=== PATIENT | female | born 1960 | race African-American/Black ===

== ENCOUNTER 2019-03-10 11:06 | Inpatient (IN) | payer OTHER, BC ==
[2019-03-10 11:23] VITALS: BMI 39.9
[2019-03-10 14:31] LABS: BASO % 0.9 % (0-2.0); EOS % 3.8 % (0-4.5); HEMATOCRIT 38.5 % (32.4-45.2); HEMOGLOBIN 12.3 GM/dL (10.7-15.3); LYMPH % 37.2 % (8-40); MCH 23.4 pg (25.7-33.7); MCHC 32.1 g/dl (32.0-36.0); MEAN CELL VOLUME 72.9 fl (80-96); MEAN PLT VOLUME 8.8 fl (7.5-11.1); MONO % 9.1 % (3.8-10.2); PLATELET COUNT 218 K/MM3 (134-434); RBC 5.28 M/mm3 (3.60-5.2); RDW 22.1 % (11.6-15.6); WHITE BLOOD COUNT 6.5 K/mm3 (4.0-10.0)
[2019-03-10 14:33] LABS: EPI CELLS 1.9 /HPF (0-5/HPF); HYALINE CASTS 38 /lpf (0-8); PH,URINE 5.5 (5.0-8.0); URINE APPEARANCE TURBID; URINE BACTERIA 4946.4 /hpf (NEGATIVE); URINE BILIRUBIN NEGATIVE (NEGATIVE); URINE COLOR YELLOW; URINE GLUCOSE (UA) NEGATIVE (NEGATIVE); URINE KETONE NEGATIVE (NEGATIVE); URINE LEUK ESTERASE 3+ (NEGATIVE); URINE NITRITE POSITIVE (NEGATIVE); URINE PROTEIN 2+ (NEGATIVE); URINE UROBILINOGEN 0.2 mg/dL (0.2-1.0); URINE WBC 3237 /hpf (0-5)
[2019-03-10 14:51] LABS: URINE RBC 28.6 /hpf (0-4)
[2019-03-10 14:58] LABS: BILIRUBIN,TOTAL 0.3 mg/dL (0.2-1); CALCIUM 8.8 mg/dL (8.5-10.1); CREATININE 0.6 mg/dL (0.55-1.3); POTASSIUM 3.7 mmol/L (3.5-5.1); TOT PROT 7.4 g/dl (6.4-8.2)
[2019-03-10] MEDS ORDERED: CEFTRIAXONE 1,000 MG in DEXTROSE 5%-WATER - 50 ML IVPB ONE (15:02)
[2019-03-10] MEDS ORDERED: CEFTRIAXONE 1 GM/50 ML BAG ONE (15:15)
[2019-03-10 15:21] LABS: ANISOCYTOSIS 2+; MACROCYTOSIS 0; PLATELET ESTIMATE NORMAL
--- NOTE | 2019-03-10 16:08 | PDOC ---
Documentation entered by Tanisha Newton SCRIBE, acting as scribe for Alex Ray MD. Aelx Ray MD: This documentation has been prepared by the Lamar grimes Sammi, SCRIBE, under my direction and personally reviewed by me in its entirety. I confirm that the documentation accurately reflects all work, treatment, procedures, and medical decision making performed by me. History of Present Illness - General Chief Complaint: Pain Stated Complaint: SOB Time Seen by Provider: 03/10/19 11:52 - History of Present Illness Initial Comments: 03/10/19 12:12 The patient is a 58 year old female, with PMH of rheumatoid arthritis, who presents for evaluation of diffuse body pain, specifically in the knees and elbows, due to her rheumatoid arthritis. The patient was discharged from [facility] on 02/19/19, with no follow up and has ran out of her chronic medications. She also reports 4 weeks of dysuria. Past History - Past Medical History Allergies/Adverse Reactions: Allergies Allergy/AdvReac Type Severity Reaction Status Date / Time sulfadiazine Allergy Verified 03/10/19 11:23 Home Medications: Ambulatory Orders Acetaminophen [Tylenol] 325 mg PO PRN 03/10/19 Amlodipine Besylate 5 mg PO DAILY 03/10/19 Apixaban [Eliquis] 5 mg PO BID 03/10/19 Baclofen 10 mg PO TID 03/10/19 Budesonide/Formeterol Fumarate [SYMBICORT 160/4.5mcg -] 1 inh PO BID 03/10/19 Cholecalciferol (Vitamin D3) [Vitamin D3 -] 400 unit PO DAILY 03/10/19 Folic Acid 1 mg PO DAILY 03/10/19 Hydroxychloroquine Sulfate [Plaquenil] 200 mg PO DAILY 03/10/19 Latanoprost 0.005% Eye Drops [Xalatan 0.005% Eye Drops -] 1 drop HS 03/10/19 Methotrexate Sodium [Methotrexate] 2.5 mg PO ASDIR 03/10/19 Metoprolol Tartrate 25 mg PO BID 03/10/19 Montelukast Na [Singulair -] 10 mg PO HS 03/10/19 Omeprazole 20 mg PO DAILY 03/10/19 Prednisone 5 mg PO AM 03/10/19 Pregabalin [Lyrica -] 150 mg PO BID 03/10/19 Sennosides/Docusate Sodium [Senna Plus 8.6-50 mg Tablet] 1 each PO HS 03/10/19 Thiamine HCl [B-1] 100 mg PO DAILY 03/10/19 predniSONE [Deltasone -] 2.5 mg PO DAILY 03/10/19 Anemia: Yes Asthma: Yes COPD: No DVT: Yes (PE) GI Disorders: Yes (GERD,CONSTIPATION) HTN: Yes Other medical history: RHEUMATOID ARTHRITIS - Immunization History Immunization Up to Date: Yes - Psycho Social/Smoking Cessation Hx Smoking History: Never smoked Information on smoking cessation initiated: No Hx Alcohol Use: No Drug/Substance Use Hx: No Review of Systems - Review of Systems Comments:: 03/10/19 12:12 CONSTITUTIONAL: No fever, no chills, no fatigue EYES: No visual changes ENT: No ear pain, no sore throat CARDIOVASCULAR: No chest pain, no palpitations RESPIRATORY: No cough, no SOB GI: No abdominal pain, no nausea, no vomiting, no constipation, no diarrhea GENITOURINARY: No dysuria, no frequency, no hematuria MUSKULOSKELETAL: +diffuse joint pain, centered to knees and elbows. SKIN: No rash NEURO: No headache *Physical Exam - Vital Signs Last Vital Signs Temp Pulse Resp BP Pulse Ox 98.3 F 84 18 122/90 98 03/10/19 11:10 03/10/19 11:10 03/10/19 11:10 03/10/19 11:10 03/10/19 11:10 - Physical Exam 03/10/19 16:16 EXAMINATION CONSTITUTIONAL: awake, alert, obese, in moderate distress HEAD: Normocephalic; atraumatic EYES: PERRL; EOM intact ENMT: External appears normal; mm-dry NECK: Supple; non-tender; no cervical lymphadenopathy CARD: Normal S1, S2; no murmurs, rubs, or gallops RESP: distal bs b/l; Normal chest excursion with respiration; breath sounds clear and equal bilaterally; no wheezes, rhonchi, or rales ABD: Soft, non-distended; non-tender; no palpable organomegaly, no palpable hernias EXT: b/l UEs deform with digital flexion and ulnar deviation c/w long standing RA. b/l LEs arthlalgia to knee and ankle joints b/l; b/l oncomycosis; distal pulses intact SKIN: Warm, dry, b/l LEs hyperpigmintations c/w venous stasis NEURO: No focal neurological deficiencies. ED Treatment Course - LABORATORY CBC & Chemistry Diagram: 03/10/19 13:47 03/10/19 13:47 - ADDITIONAL ORDERS Additional order review: Laboratory Results 03/10/19 03/10/19 13:47 13:41 Sodium 142 Potassium 3.7 Chloride 111 H Carbon Dioxide 24 Anion Gap 8 BUN 11.0 Creatinine 0.6 Est GFR (CKD-EPI)AfAm 115.63 Est GFR (CKD-EPI)NonAf 99.77 Random Glucose 96 Calcium 8.8 Total Bilirubin 0.3 AST 21 ALT 17 Alkaline Phosphatase 124 H Total Protein 7.4 Albumin 3.0 L Urine Color Yellow Urine Appearance Turbid Urine pH 5.5 Ur Specific [place] 1.018 Urine Protein 2+ H Urine Glucose (UA) Negative Urine Ketones Negative Urine Blood 2+ H Urine Nitrite Positive H Urine Bilirubin Negative Urine Urobilinogen 0.2 Ur Leukocyte Esterase 3+ H Urine WBC (Auto) 3237 Urine RBC (Auto) 28.6 Urine Casts (Auto) 38 U Pathogenic Cast Auto None seen U Epithel Cells (Auto) 1.9 Urine Bacteria (Auto) 4946.4 03/10/19 13:47 RBC 5.28 H MCV 72.9 L MCHC 32.1 RDW 22.1 H MPV 8.8 Neutrophils % 49.0 Lymphocytes % 37.2 Monocytes % 9.1 Eosinophils % 3.8 Basophils % 0.9 - RADIOLOGY Radiology Studies Ordered: Category Date Time Status CHEST - PA [RAD] Stat Radiology 03/10/19 15:03 Completed - Medications Given in the ED: ED Medications Discontinued Medications Generic Name Dose Route Start Last Admin Trade Name Freq PRN Reason Stop Dose Admin Ceftriaxone Sodium 1,000 mg/ 50 mls @ 100 mls/hr 03/10/19 15:02 03/10/19 15: 20 Dextrose IVPB 03/10/19 15:31 100 mls/hr ONCE ONE Administration Oxycodone/Acetaminophen 1 combo 03/10/19 12:11 03/10/19 12:16 Percocet 5/325 - PO 03/10/19 12:12 1 combo ONCE ONE Administration Medical Decision Making - Medical Decision Making 03/10/19 16:20 Patient is a 58-year-old female with multiple comorbidities, history of advanced rheumatoid arthritis, who has not taken her medication for over a week presents with generalized weakness, worsening extremity and joint pain as well as persistent dysuria. Patient is afebrile, nontoxic-appearing in the ED. Will administer oxycodone and APAP for pain control. Urinalysis consistent with nitrite positive pyuria. Urine culture and sensitivities pending. Will administer IV ceftriaxone. Will admit. Will consult social work. Discharge - Discharge Information Problems reviewed: Yes Clinical Impression/Diagnosis: Weakness Urinary tract infection Qualifiers: Urinary tract infection type: site unspecified Hematuria presence: with hematuria Qualified Code(s): N39.0 - Urinary tract infection, site not specified Rheumatoid arthritis Qualifiers: Rheumatoid arthritis location: unspecified site Rheumatoid factor presence: unspecified presence Qualified Code(s): M06.9 - Rheumatoid arthritis, unspecified Condition: Fair - Admission Yes - Follow up/Referral - Patient Discharge Instructions - Post Discharge Activity
[2019-03-10] MEDS ORDERED: METHOTREXATE 2.5 MG TABLET PO SCH (17:45)
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
--- NOTE | 2019-03-10 18:10 | PN ---
Teaching Attending Note Name of Resident: Jennie Cuellar ATTENDING PHYSICIAN STATEMENT I saw and evaluated the patient. I reviewed the resident's note and discussed the case with the resident. I agree with the resident's findings and plan as documented. SUBJECTIVE: Patient is a 58 yo obese F with a PMhx of DVT x 2 (on eliquis), HTN, severe RA, presenting to the ER because of diffuse body pain that has been going on for the past few months since being discharged from [facility] on (resident for 1 year). She said she is running out of her medications since [facility] and has not followed up with a PCP. That is another reason why she presented to the ED. She has not had a pcp in many years. She said she usually gets her medications filled from the nursing homes. She also mentions self medicating herself with 40mg of prednisone for a long time but recently has been on 7.5mg. She said she was following Dr. Persaud (Rheumatology) from [facility] for many years, but he apparently retired. Then she was seeing her prison pool table mechanic until she was discharged. Patient is a poor historian and not reliable. She said she has been living with her sister since leaving the prison. She is mostly bed bound and does not ambulate. and sister helps with her, She denies sob, nausea, vomiting, fevers, chills, chest pain, dizziness, cough, bloody urine, rectal bleeding. She does report having a pulling sensation and discomfort in her lower abdomen when she urinates for 4 weeks. pt non compliant with the followup, was supposssed to see the rheumatology today, but unable to get the transportation, OBJECTIVE: O/e, a middle aged female, is comfortable , nad, is aao into time place and person, vss neck supple , no jvd cvs s1/s2/0 chest ctab abd benign ext no c/c/e, hands cesar deformities, ulnar deviation, and swarm deformities, neuro non focal swollen R knee, painful rom, ms 5/5 ASSESSMENT AND PLAN: 1) UTI U/A positive -IV abx with Ceftriaxone. -follow up blood cultures 2)Rhematoid arthritis -has not followed up with a pool table mechanic. non-compliant. diffuse pain, -resume prednisone 7.5 daily, methrotrexate, hold plaquenil for now (unsure when she last saw opthamologist). restart baclofen if needed. -Rheumatology consult. Patient on many medications, self medicating, and has not followed up since being [facility] from [facility]. -cont lyrica for pain 3)hx of DVT -continue eliquis 5mg BID 4)HTN -cont norvasc, metoprolol dispo: cont current management. patient unsafe for discharge at this time. will talk to social science research assistant in AM regarding placement for discharge.
[2019-03-10] MEDS ORDERED: PATIENT'S OWN MEDICATION (NON-FORMULARY) (Pregabalin [Lyrica -] 150 MG) PO SCH (22:00)
[2019-03-10] MEDS ORDERED: ACETAMINOPHEN 325 MG TABLET (FP) ONE (22:01)
[2019-03-10] MEDS ORDERED: KETOROLAC TROMETHAMINE 15 MG/ML VIAL ONE (22:02)
[2019-03-10] MEDS ORDERED: PREGABALIN 50 MG CAPSULE ONE (22:02)
[2019-03-10] MEDS: KETOROLAC TROMETHAMINE 15 MG/ML VIAL IVPUSH PRN (22:15)
[2019-03-10] MEDS: APIXABAN 5 MG TABLET PO SCH (22:30)
[2019-03-10] MEDS: METOPROLOL TARTRATE 25 MG TABLET (FP) PO SCH (22:30)
[2019-03-10] MEDS: MONTELUKAST NA 10 MG TABLET PO SCH (22:30)
[2019-03-10] MEDS: SENNOSIDES/DOCUSATE COMBO (SENNA PLUS) TABLET (UD) PO SCH (22:30)
[2019-03-10] MEDS: PREGABALIN 75 MG CAPSULE PO SCH (22:30)
[2019-03-10] MEDS: BUDESONIDE/FORMETEROL FUMARATE 160/4.5 mcg INHALER IH SCH (22:31)
[2019-03-11] MEDS: predniSONE 5 MG/5 ML ORAL SOLN- UNIT-DOSE CUP PO SCH (06:28)
[2019-03-11 06:57] LABS: HEMATOCRIT 38.6 % (32.4-45.2); HEMOGLOBIN 12.4 GM/dL (10.7-15.3); MCH 23.7 pg (25.7-33.7); MCHC 32.1 g/dl (32.0-36.0); MEAN PLT VOLUME 8.6 fl (7.5-11.1); PLATELET COUNT 190 K/MM3 (134-434); RBC 5.22 M/mm3 (3.60-5.2); RDW 21.6 % (11.6-15.6); WHITE BLOOD COUNT 6.9 K/mm3 (4.0-10.0)
[2019-03-11] MEDS ORDERED: predniSONE 5 MG TABLET (UD) PO SCH (07:00)
[2019-03-11 07:43] LABS: ALBUMIN 2.9 g/dl (3.4-5.0); BILIRUBIN,TOTAL 0.3 mg/dL (0.2-1); BLOOD UREA NITROGEN 13.3 mg/dL (7-18); CALCIUM 8.7 mg/dL (8.5-10.1); CREATININE 0.8 mg/dL (0.55-1.3); POTASSIUM 3.6 mmol/L (3.5-5.1); TOT PROT 7.1 g/dl (6.4-8.2)
[2019-03-11] MEDS ORDERED: predniSONE 2.5 MG TABLET PO SCH (10:00)
[2019-03-11] MEDS: APIXABAN 5 MG TABLET PO SCH ×2 (10:14→22:25)
[2019-03-11] MEDS: FOLIC ACID 1 MG TABLET (FP) PO SCH (10:14)
[2019-03-11] MEDS: METOPROLOL TARTRATE 25 MG TABLET (FP) PO SCH ×2 (10:17→22:25)
[2019-03-11] MEDS: CHOLECALCIFEROL (VIT D3) 400 UNIT (10 MCG) TABLET PO SCH (10:18)
[2019-03-11] MEDS: BUDESONIDE/FORMETEROL FUMARATE 160/4.5 mcg INHALER IH SCH ×2 (10:18→22:26)
[2019-03-11] MEDS: KETOROLAC TROMETHAMINE 15 MG/ML VIAL IVPUSH PRN ×2 (10:19→17:14)
[2019-03-11] MEDS: THIAMINE HCL 100 MG TABLET (FP) PO SCH (10:22)
[2019-03-11] MEDS: amLODIPine BESYLATE 5 MG TABLET (FP) PO SCH (10:23)
[2019-03-11] MEDS ORDERED: PREGABALIN 50 MG CAPSULE ONE (11:32)
[2019-03-11] MEDS ORDERED: PREGABALIN 100 MG CAPSULE ONE (11:33)
[2019-03-11] MEDS: PREGABALIN 75 MG CAPSULE PO SCH ×2 (11:37→22:25)
--- NOTE | 2019-03-11 11:55 | EKG ---
Test Reason : Blood Pressure : / mmHG Vent. Rate : 084 BPM Atrial Rate : 084 BPM P-R Int : 170 ms QRS Dur : 082 ms QT Int : 370 ms P-R-T Axes : 020 -30 017 degrees QTc Int : 437 ms POOR DATA QUALITY, INTERPRETATION MAY BE ADVERSELY AFFECTED NORMAL SINUS RHYTHM LEFT AXIS DEVIATION VOLTAGE CRITERIA FOR LEFT VENTRICULAR HYPERTROPHY NONSPECIFIC T WAVE ABNORMALITY ABNORMAL ECG NO PREVIOUS ECGS AVAILABLE Confirmed by JESSIE GUPTA, SINA ([id number]) on 03/11/2019 11:55:17 AM Referred By: Confirmed By:SINA ROMAN MD
[2019-03-11] MEDS: CEFTRIAXONE 2 GM in DEXTROSE 5%-WATER 100 ML IVPB SCH (11:58)
--- NOTE | 2019-03-11 13:57 | PN ---
Teaching Attending Note Name of Resident: Christina Perea ATTENDING PHYSICIAN STATEMENT I saw and evaluated the patient. I reviewed the resident's note and discussed the case with the resident. I agree with the resident's findings and plan as documented. SUBJECTIVE: Seen and examined at bedside. No acute events overnight. Feeling better OBJECTIVE: Vital Signs - 24 hr 03/10/19 03/10/19 03/10/19 16:48 19:30 23:00 Temperature 98.4 F 98.1 F 97.1 F L Pulse Rate 82 81 Pulse Rate [ 96 H Left Radial] Respiratory 15 18 18 Rate Blood Pressure 114/81 128/84 Blood Pressure 114/73 [Left Arm] O2 Sat by Pulse 97 98 Oximetry (%) 03/11/19 03/11/19 03/11/19 06:26 09:00 09:37 Temperature 98.4 F 99.1 F Pulse Rate 87 58 L Pulse Rate [ Left Radial] Respiratory 18 20 20 Rate Blood Pressure 120/85 123/58 L Blood Pressure [Left Arm] O2 Sat by Pulse 97 Oximetry (%) PE: Gen: NAD CVS: s1s2, rrr Lungs: CTA bl no wrr Abd: soft, nt,nd, nabs Ext: RA deformities, bl lower ext chronic venous stasis changes Current Medications Generic Name Dose Route Start Last Admin Trade Name Freq PRN Reason Stop Dose Admin Acetaminophen 1,000 mg 03/10/19 21:13 Tylenol - PO Q6H PRN PAIN LEVEL 6-10 Amlodipine Besylate 5 mg 03/11/19 10:00 03/11/19 10:23 Norvasc - PO 5 mg DAILY NUNU Administration Apixaban 5 mg 03/10/19 22:00 03/11/19 10:14 Eliquis - PO 5 mg BID NUNU Administration Budesonide/Formoterol Fumarate 1 puff 03/10/19 22:00 03/11/19 10:18 Symbicort 160/4.5mcg - IH 1 inh BID NUNU Administration Cholecalciferol 400 unit 03/11/19 10:00 03/11/19 10:18 Vitamin D3 - PO 400 unit DAILY NUNU Administration Folic Acid 1 mg 03/11/19 10:00 03/11/19 10:14 Folic Acid - PO 1 mg DAILY NUNU Administration Ceftriaxone Sodium 2 gm/ 100 mls @ 200 mls/hr 03/11/19 10:00 03/11/19 11:58 Dextrose IVPB 200 mls/hr DAILY NUNU Administration Protocol Ketorolac Tromethamine 15 mg 03/10/19 21:14 03/11/19 10:19 Toradol Injection - IVPUSH 03/15/19 21:13 15 mg Q6H PRN Administration PAIN LEVEL 6-10 Methotrexate 2.5 mg 03/10/19 17:45 Mexate - PO ASDIR NUNU Metoprolol Tartrate 25 mg 03/10/19 22:00 03/11/19 10:17 Lopressor - PO 25 mg BID NUNU Administration Montelukast Sodium 10 mg 03/10/19 22:00 03/10/19 22:30 Singulair - PO 10 mg HS NUNU Administration Prednisone 7.5 mg 03/11/19 07:00 03/11/19 06:28 Deltasone - PO 7.5 mg AM NUNU Administration Pregabalin 150 mg 03/10/19 22:00 03/11/19 11:37 Lyrica - PO 150 mg BID NUNU Administration Senna/Docusate Sodium 1 tablet 03/10/19 22:00 03/10/19 22:30 Pericolace - PO 1 tablet HS NUNU Administration Thiamine HCl 100 mg 03/11/19 10:00 03/11/19 10:22 Vitamin B1 - PO 100 mg DAILY NUNU Administration Laboratory Results - last 24 hr 03/10/19 03/10/19 03/10/19 13:41 13:47 13:47 WBC 6.5 RBC 5.28 H Hgb 12.3 Hct 38.5 MCV 72.9 L MCH 23.4 L MCHC 32.1 RDW 22.1 H Plt Count 218 MPV 8.8 Absolute Neuts (auto) 3.2 Neutrophils % 49.0 Lymphocytes % 37.2 Monocytes % 9.1 Eosinophils % 3.8 Basophils % 0.9 Nucleated RBC % 0 Hypochromia 0 Platelet Estimate Normal Polychromasia 0 Poikilocytosis 0 Anisocytosis 2+ Microcytosis 2+ Macrocytosis 0 Sodium 142 Potassium 3.7 Chloride 111 H Carbon Dioxide 24 Anion Gap 8 BUN 11.0 Creatinine 0.6 Est GFR (CKD-EPI)AfAm 115.63 Est GFR (CKD-EPI)NonAf 99.77 Random Glucose 96 Hemoglobin A1c % Calcium 8.8 Total Bilirubin 0.3 AST 21 ALT 17 Alkaline Phosphatase 124 H Total Protein 7.4 Albumin 3.0 L TSH Urine Color Yellow Urine Appearance Turbid Urine pH 5.5 Ur Specific [place] 1.018 Urine Protein 2+ H Urine Glucose (UA) Negative Urine Ketones Negative Urine Blood 2+ H Urine Nitrite Positive H Urine Bilirubin Negative Urine Urobilinogen 0.2 Ur Leukocyte Esterase 3+ H Urine WBC (Auto) 3237 Urine RBC (Auto) 28.6 Urine Casts (Auto) 38 U Pathogenic Cast Auto None seen U Epithel Cells (Auto) 1.9 Urine Bacteria (Auto) 4946.4 03/11/19 03/11/19 03/11/19 06:00 06:00 06:00 WBC 6.9 RBC 5.22 H Hgb 12.4 Hct 38.6 MCV 74.0 L MCH 23.7 L MCHC 32.1 RDW 21.6 H Plt Count 190 MPV 8.6 Absolute Neuts (auto) Neutrophils % Lymphocytes % Monocytes % Eosinophils % Basophils % Nucleated RBC % Hypochromia Platelet Estimate Polychromasia Poikilocytosis Anisocytosis Microcytosis Macrocytosis Sodium 143 Potassium 3.6 Chloride 110 H Carbon Dioxide 25 Anion Gap 7 L BUN 13.3 Creatinine 0.8 Est GFR (CKD-EPI)AfAm 93.53 Est GFR (CKD-EPI)NonAf 80.70 Random Glucose 79 Hemoglobin A1c % 5.8 Calcium 8.7 Total Bilirubin 0.3 AST 21 ALT 15 Alkaline Phosphatase 117 Total Protein 7.1 Albumin 2.9 L TSH 3.60 Urine Color Urine Appearance Urine pH Ur Specific [place] Urine Protein Urine Glucose (UA) Urine Ketones Urine Blood Urine Nitrite Urine Bilirubin Urine Urobilinogen Ur Leukocyte Esterase Urine WBC (Auto) Urine RBC (Auto) Urine Casts (Auto) U Pathogenic Cast Auto U Epithel Cells (Auto) Urine Bacteria (Auto) Microbiology 03/10/19 13:41 Urine Culture - Preliminary Urine - Urine - Catheterized Lactose Fermenting Neg Bacilli ASSESSMENT AND PLAN: 58 year old female presents with diffuse joint pain 1) UTI -IV abx pending sens -fu blood cx 2) RA -cw home meds -needs better o/p fu -PT eval 3) DVT Hx -cw eliquis 4) HTN -cw current meds SW involved for dispo planning
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
--- NOTE | 2019-03-11 17:46 | CONSULT ---
Consult Consult Specialty:: Rheumatology - History of Present Illness History of Present Illness: 58 year old obese female with a PMhx of DVT x 2 (on Eliquis), HTN, and rheumatoid arthritis, admitted with diffuse pain. HPI. The patient was diagnosed with rheumatoid arthritis in 2005. Since then she has been treated with Methotrexate (5266-0000 and restarted on 09/2018- present), Humira (6042-0912) and Orencia IV (09/2018- present). She is been followed by a lumber bearer at [facility], where she also gets the Orencia infusions. She reports that she missed her last infusion. She has been a prison resident and was discharged on 02/19/19 apparently with poor planning for continuation of care and prescription of medications. She had surgery in the left knee on 03/2017 (TKR?) and has chronic pain in shoulders and knees. It is not clear if at the present time she has more pain than in the past. She denies shortness of breath, chest pain, abdominal pain or fever. Since admission she is on Prednisone 7.5 mg/d. CXR reported with no acute disease. - History Source History Provided By: Patient - Past Medical History ...: No - Alcohol/Substance Use Hx Alcohol Use: No - Smoking History Smoking history: Never smoked Have you smoked in the past 12 months: No Home Medications - Allergies Allergies/Adverse Reactions: Allergies Allergy/AdvReac Type Severity Reaction Status Date / Time sulfadiazine Allergy Verified 03/10/19 11:23 - Home Medications Home Medications: Ambulatory Orders Acetaminophen [Tylenol] 325 mg PO PRN 03/10/19 Amlodipine Besylate 5 mg PO DAILY 03/10/19 Apixaban [Eliquis] 5 mg PO BID 03/10/19 Baclofen 10 mg PO TID 03/10/19 Budesonide/Formeterol Fumarate [SYMBICORT 160/4.5mcg -] 1 inh PO BID 03/10/19 Cholecalciferol (Vitamin D3) [Vitamin D3 -] 400 unit PO DAILY 03/10/19 Folic Acid 1 mg PO DAILY 03/10/19 Hydroxychloroquine Sulfate [Plaquenil] 200 mg PO DAILY 03/10/19 Latanoprost 0.005% Eye Drops [Xalatan 0.005% Eye Drops -] 1 drop HS 03/10/19 Methotrexate Sodium [Methotrexate] 2.5 mg PO ASDIR 03/10/19 Metoprolol Tartrate 25 mg PO BID 03/10/19 Montelukast Na [Singulair -] 10 mg PO HS 03/10/19 Omeprazole 20 mg PO DAILY 03/10/19 Percocet 5-325 mg Tablet 1 tab PO Q6H PRN 03/10/19 Prednisone 5 mg PO AM 03/10/19 Pregabalin [Lyrica -] 150 mg PO BID 03/10/19 Sennosides/Docusate Sodium [Senna Plus 8.6-50 mg Tablet] 1 each PO HS 03/10/19 Thiamine HCl [B-1] 100 mg PO DAILY 03/10/19 predniSONE [Deltasone -] 2.5 mg PO DAILY 03/10/19 Review of Systems - Review of Systems Constitutional: reports: Malaise Eyes: reports: No Symptoms HENT: reports: No Symptoms Neck: reports: No Symptoms Cardiovascular: reports: No Symptoms Respiratory: reports: No Symptoms Gastrointestinal: reports: No Symptoms Musculoskeletal: reports: Other (See HPI) Physical Exam Vital Signs: Vital Signs Temperature 98.5 F 03/11/19 14:00 Pulse Rate 96 H 03/11/19 14:00 Respiratory Rate 20 03/11/19 15:01 Blood Pressure 102/66 03/11/19 14:00 O2 Sat by Pulse Oximetry (%) 98 03/11/19 15:01 Constitutional: Yes: Moderate Distress Eyes: Yes: WNL HENT: Yes: WNL Neck: Yes: WNL Cardiovascular: Yes: WNL Respiratory: Yes: WNL Gastrointestinal: Yes: WNL Musculoskeletal: Yes: Other (Severe deformity in wrists and hands, however there was no synovitis. Tenderness in both knees with no effusion.) Labs: CBC, BMP 03/11/19 06:00 03/11/19 06:00 Laboratory Tests 03/10/19 03/11/19 03/11/19 13:41 06:00 06:00 Est GFR (CKD-EPI)AfAm 93.53 Random Glucose 79 Hemoglobin A1c % 5.8 Calcium 8.7 Total Bilirubin 0.3 AST 21 Alkaline Phosphatase 117 Total Protein 7.1 Urine Appearance Turbid Urine pH 5.5 Ur Specific [place] 1.018 Urine Protein 2+ H Urine Glucose (UA) Negative Urine Ketones Negative Urine Blood 2+ H Urine Nitrite Positive H Urine Bilirubin Negative Urine Urobilinogen 0.2 Ur Leukocyte Esterase 3+ H Urine WBC (Auto) 3237 Urine RBC (Auto) 28.6 Problem List - Problems (1) Rheumatoid arthritis Assessment/Plan: Rheumatoid arthritis with severe damage in multiple joints, in particular hands. The disease is not active. Most of her pain is probably related to joint damage, Her main problem is social aspects of discharge. She was given an apartment in an elevator building, however she claims she does not fit in the elevator. Apparently she did not get prescriptions for medications. Plan Continue with Methotrexate 15 mg PO once per week(Friday). Continue with Prednisone 7.5 mg once per day. Avoid narcotics. Social work to evaluate the patient and arrange follow up at [facility] for continuation of treatment (Orencia IV) and follow up with her lumber bearer. Code(s): M06.9 - RHEUMATOID ARTHRITIS, UNSPECIFIED Qualifiers: Rheumatoid arthritis location: unspecified site Rheumatoid factor presence : unspecified presence
[2019-03-11] MEDS ORDERED: PT OWN MED DRAWER 7, Y5N ONE (17:51)
[2019-03-11] MEDS: SENNOSIDES/DOCUSATE COMBO (SENNA PLUS) TABLET (UD) PO SCH (22:26)
[2019-03-11] MEDS: MONTELUKAST NA 10 MG TABLET PO SCH (22:26)
[2019-03-12] MEDS: predniSONE 5 MG/5 ML ORAL SOLN- UNIT-DOSE CUP PO SCH (06:46)
[2019-03-12 09:21] LABS: BASO % 0.7 % (0-2.0); EOS % 7.2 % (0-4.5); HEMATOCRIT 36.9 % (32.4-45.2); HEMOGLOBIN 11.9 GM/dL (10.7-15.3); LYMPH % 40.1 % (8-40); MCH 23.6 pg (25.7-33.7); MCHC 32.3 g/dl (32.0-36.0); MEAN CELL VOLUME 73.1 fl (80-96); MEAN PLT VOLUME 8.8 fl (7.5-11.1); MONO % 8.9 % (3.8-10.2); NEUT % 43.1 % (42.8-82.8); PLATELET COUNT 197 K/MM3 (134-434); RBC 5.04 M/mm3 (3.60-5.2); RDW 21.7 % (11.6-15.6); WHITE BLOOD COUNT 7.3 K/mm3 (4.0-10.0)
[2019-03-12] MEDS ORDERED: DEXTROSE 5%-WATER 100 ML IVPB ONE (09:45)
[2019-03-12] MEDS: KETOROLAC TROMETHAMINE 15 MG/ML VIAL IVPUSH PRN (09:46)
[2019-03-12] MEDS: PREGABALIN 75 MG CAPSULE PO SCH ×2 (09:47→21:19)
[2019-03-12] MEDS: THIAMINE HCL 100 MG TABLET (FP) PO SCH (09:47)
[2019-03-12] MEDS: FOLIC ACID 1 MG TABLET (FP) PO SCH (09:47)
[2019-03-12] MEDS: CHOLECALCIFEROL (VIT D3) 400 UNIT (10 MCG) TABLET PO SCH (09:47)
[2019-03-12] MEDS: CEFTRIAXONE 2 GM in DEXTROSE 5%-WATER 100 ML IVPB SCH (09:47)
[2019-03-12] MEDS: APIXABAN 5 MG TABLET PO SCH ×2 (09:47→21:19)
[2019-03-12] MEDS: METOPROLOL TARTRATE 25 MG TABLET (FP) PO SCH ×2 (09:47→21:19)
[2019-03-12] MEDS: amLODIPine BESYLATE 5 MG TABLET (FP) PO SCH (09:47)
[2019-03-12] MEDS: BUDESONIDE/FORMETEROL FUMARATE 160/4.5 mcg INHALER IH SCH ×2 (09:48→21:19)
[2019-03-12 09:51] LABS: BILIRUBIN,TOTAL 0.4 mg/dL (0.2-1); BLOOD UREA NITROGEN 17.6 mg/dL (7-18); CALCIUM 8.7 mg/dL (8.5-10.1); CREATININE 0.7 mg/dL (0.55-1.3); POTASSIUM 3.5 mmol/L (3.5-5.1); TOT PROT 6.9 g/dl (6.4-8.2)
--- NOTE | 2019-03-12 11:07 | PN ---
Teaching Attending Note Name of Resident: Christina Perea ATTENDING PHYSICIAN STATEMENT I saw and evaluated the patient. I reviewed the resident's note and discussed the case with the resident. I agree with the resident's findings and plan as documented. SUBJECTIVE: In no distress at this time, was evaluated by rheumatology today and no further interventions were indicated at this time OBJECTIVE: Vital Signs - 24 hr 03/11/19 03/11/19 03/11/19 14:00 15:01 18:00 Temperature 98.5 F 98.3 F Pulse Rate 96 H 83 Respiratory 20 20 20 Rate Blood Pressure 102/66 130/74 O2 Sat by Pulse 98 Oximetry (%) 03/12/19 03/12/19 03/12/19 01:00 06:00 10:00 Temperature 98.3 F 98.8 F Pulse Rate 88 112 H Respiratory 20 20 Rate Blood Pressure 107/79 115/69 O2 Sat by Pulse 99 Oximetry (%) in no distress, sleeping in bed with some minimal joint pain CVS:S1S2 CTAB CBCD WBC 7.3 K/mm3 (4.0-10.0) 03/12/19 08:18 RBC 5.04 M/mm3 (3.60-5.2) 03/12/19 08:18 Hgb 11.9 GM/dL (10.7-15.3) 03/12/19 08:18 Hct 36.9 % (32.4-45.2) 03/12/19 08:18 MCV 73.1 fl (80-96) L 03/12/19 08:18 MCHC 32.3 g/dl (32.0-36.0) 03/12/19 08:18 RDW 21.7 % (11.6-15.6) H 03/12/19 08:18 Plt Count 197 K/MM3 (134-434) 03/12/19 08:18 MPV 8.8 fl (7.5-11.1) 03/12/19 08:18 CMP Sodium 141 mmol/L (136-145) 03/12/19 08:18 Potassium 3.5 mmol/L (3.5-5.1) 03/12/19 08:18 Chloride 110 mmol/L (98-107) H 03/12/19 08:18 Carbon Dioxide 26 mmol/L (21-32) 03/12/19 08:18 Anion Gap 5 MMOL/L (8-16) L 03/12/19 08:18 BUN 17.6 mg/dL (7-18) 03/12/19 08:18 Creatinine 0.7 mg/dL (0.55-1.3) 03/12/19 08:18 Calcium 8.7 mg/dL (8.5-10.1) 03/12/19 08:18 Total Bilirubin 0.4 mg/dL (0.2-1) 03/12/19 08:18 AST 19 U/L (15-37) 03/12/19 08:18 ALT 16 U/L (13-61) 03/12/19 08:18 Alkaline Phosphatase 111 U/L (45-117) 03/12/19 08:18 Total Protein 6.9 g/dl (6.4-8.2) 03/12/19 08:18 Albumin 3.0 g/dl (3.4-5.0) L 03/12/19 08:18 Current Medications Generic Name Dose Route Start Last Admin Trade Name Freq PRN Reason Stop Dose Admin Acetaminophen 1,000 mg 03/10/19 21:13 Tylenol - PO Q6H PRN PAIN LEVEL 6-10 Amlodipine Besylate 5 mg 03/11/19 10:00 03/12/19 09:47 Norvasc - PO 5 mg DAILY NUNU Administration Apixaban 5 mg 03/10/19 22:00 03/12/19 09:47 Eliquis - PO 5 mg BID NUNU Administration Budesonide/Formoterol Fumarate 1 puff 03/10/19 22:00 03/12/19 09:48 Symbicort 160/4.5mcg - IH 1 inh BID NUNU Administration Cholecalciferol 400 unit 03/11/19 10:00 03/12/19 09:47 Vitamin D3 - PO 400 unit DAILY NUNU Administration Folic Acid 1 mg 03/11/19 10:00 03/12/19 09:47 Folic Acid - PO 1 mg DAILY NUNU Administration Ceftriaxone Sodium 2 gm/ 100 mls @ 200 mls/hr 03/11/19 10:00 03/12/19 09:47 Dextrose IVPB 200 mls/hr DAILY NUNU Administration Protocol Ketorolac Tromethamine 15 mg 03/10/19 21:14 03/12/19 09:46 Toradol Injection - IVPUSH 03/15/19 21:13 15 mg Q6H PRN Administration PAIN LEVEL 6-10 Methotrexate 15 mg 03/13/19 10:00 Mexate - PO Sa [facility] Metoprolol Tartrate 25 mg 03/10/19 22:00 03/12/19 09:47 Lopressor - PO 25 mg BID NUNU Administration Montelukast Sodium 10 mg 03/10/19 22:00 03/11/19 22:26 Singulair - PO 10 mg HS NUNU Administration Prednisone 7.5 mg 03/11/19 07:00 03/12/19 06:46 Deltasone - PO 7.5 mg AM NUNU Administration Pregabalin 150 mg 03/10/19 22:00 03/12/19 09:47 Lyrica - PO 150 mg BID NUNU Administration Senna/Docusate Sodium 1 tablet 03/10/19 22:00 03/11/19 22:26 Pericolace - PO 1 tablet HS NUNU Administration Thiamine HCl 100 mg 03/11/19 10:00 03/12/19 09:47 Vitamin B1 - PO 100 mg DAILY NUNU Administration ASSESSMENT AND PLAN: She is a 58 Y/O F W Obesity, severe RA, P/W severe de- conditioning and immobility in the setting of uncontrolled RA due to missing her injections at [facility]. At this time patient is pending LUCY. Also being treated for possible UTI. RA: pain control with NSAIDS and opioids as needed Will C/W prednisone for acute setting for 3 more days Will restart her on MTX and lyudmila SW involved to make sure she will have appointment for infusion at [facility] Kwetrola only for 245 hours and will stop it today osteoprosis: she is high risk for OP, should be on CA/VIT D supplements as well as bgispphosphonate with peoper CA/vit D levels CAD: she has uncontrolled RA, obesity and HTN, she has to be on high dose statins and ASA She is on BB ( unclear indication at this time) will C/W it She will need SPECT as O/P HTN: well controlled on amlodipine HX oF DVT: C/W current menagement.
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
[2019-03-12] MEDS: MONTELUKAST NA 10 MG TABLET PO SCH (21:19)
[2019-03-12] MEDS: ATORVASTATIN CA 20 MG TABLET (FP) PO SCH (21:19)
[2019-03-12] MEDS: SENNOSIDES/DOCUSATE COMBO (SENNA PLUS) TABLET (UD) PO SCH (21:19)
[2019-03-12] MEDS: ACETAMINOPHEN 500 MG TABLET (FP) PO PRN (21:20)
[2019-03-13] MEDS ORDERED: PT OWN MED DRAWER 7, Y5N ONE (05:54)
[2019-03-13] MEDS: predniSONE 5 MG/5 ML ORAL SOLN- UNIT-DOSE CUP PO SCH (06:05)
[2019-03-13] MEDS: ACETAMINOPHEN 500 MG TABLET (FP) PO PRN ×2 (06:06→12:20)
--- NOTE | 2019-03-13 09:06 | PN ---
Progress Note, Physician History of Present Illness: Patient seen and examined at bedside. Endorses she iss till having discomfort on urination and describes a pulling feeling. UCx grew ESBL E. Coli, however, patient remains on ceftriaxone. Endorses pain all over her body from her rhamatoid arthritis. Discussed dispo planning with SW/NOLA this AM. She denies nausea vomiting fever chills chest pain or SOB. - Current Medication List Current Medications: Active Medications Acetaminophen (Tylenol -) 1,000 mg PO Q6H PRN PRN Reason: PAIN LEVEL 6-10 Last Admin: 03/13/19 06:06 Dose: 1,000 mg Amlodipine Besylate (Norvasc -) 5 mg PO DAILY [facility] Last Admin: 03/12/19 09:47 Dose: 5 mg Apixaban (Eliquis -) 5 mg PO BID [facility] Last Admin: 03/12/19 21:19 Dose: 5 mg Aspirin (Ecotrin -) 81 mg PO DAILY [facility] Atorvastatin Calcium (Lipitor -) 20 mg PO HS [facility] Last Admin: 03/12/19 21:19 Dose: 20 mg Budesonide/Formoterol Fumarate (Symbicort 160/4.5mcg -) 1 puff IH BID [facility] Last Admin: 03/12/19 21:19 Dose: 1 inh Cholecalciferol (Vitamin D3 -) 400 unit PO DAILY [facility] Last Admin: 03/12/19 09:47 Dose: 400 unit Folic Acid (Folic Acid -) 1 mg PO DAILY [facility] Last Admin: 03/12/19 09:47 Dose: 1 mg Ertapenem 1 gm/ Sodium (Chloride) 50 mls @ 100 mls/hr IVPB DAILY [facility] Methotrexate (Mexate -) 15 mg PO Sa [facility] Metoprolol Tartrate (Lopressor -) 25 mg PO BID [facility] Last Admin: 03/12/19 21:19 Dose: 25 mg Montelukast Sodium (Singulair -) 10 mg PO HS [facility] Last Admin: 03/12/19 21:19 Dose: 10 mg Prednisone (Deltasone -) 7.5 mg PO AM [facility] Last Admin: 03/13/19 06:05 Dose: 7.5 mg Pregabalin (Lyrica -) 150 mg PO BID [facility] Last Admin: 03/12/19 21:19 Dose: 150 mg Senna/Docusate Sodium (Pericolace -) 1 tablet PO HS [facility] Last Admin: 03/12/19 21:19 Dose: 1 tablet Thiamine HCl (Vitamin B1 -) 100 mg PO DAILY [facility] Last Admin: 03/12/19 09:47 Dose: 100 mg - Objective Vital Signs: Vital Signs Temperature 98.5 F 03/13/19 05:43 Pulse Rate 72 03/13/19 05:43 Respiratory Rate 03/13/19 05:43 Blood Pressure 106/68 03/13/19 05:43 O2 Sat by Pulse Oximetry (%) 97 03/12/19 22:00 Constitutional: Yes: No Distress, Obese Eyes: Yes: WNL, Conjunctiva Clear, EOM Intact HENT: Yes: Other (moist mucous membranes) Cardiovascular: Yes: Regular Rate and Rhythm Respiratory: Yes: Rales (mild crackles at bilateral bases). No: Accessory Muscle Use Gastrointestinal: Yes: Soft. 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 Rheumatoid arthritis rheumatology consult noted and appreciated continue prednisone 7.5 daily, methrotrexate 15mg every Friday per darlene CASTILLO/CM to follow up on services for outpatient vs SNF placement and setting up orencia infusions at [facility] with her audio visual technician Symptomatic UTI-ESBL E. COli Will stop ceftriaxone and start ertapenem 1gm daily contact precautions history of DVTx2 continue eliquis 5mg BID HTN Well controlled at this time cont norvasc, metoprolol HLD Continue lipitor continue aspirin DVT PPx eliquis Visit type - Emergency Visit Emergency Visit: Yes ED Registration Date: 03/11/19 Care time: The patient presented to the Emergency Department on the above date and was hospitalized for further evaluation of their emergent condition. - New Patient This patient is new to me today: Yes Date on this admission: 03/13/19 - Critical Care Critical Care patient: No
[2019-03-13] MEDS ORDERED: METHOTREXATE 2.5 MG TABLET PO SCH (10:00)
[2019-03-13] MEDS: PREGABALIN 75 MG CAPSULE PO SCH ×2 (10:25→21:51)
[2019-03-13] MEDS: METOPROLOL TARTRATE 25 MG TABLET (FP) PO SCH ×2 (10:26→21:51)
[2019-03-13] MEDS: CHOLECALCIFEROL (VIT D3) 400 UNIT (10 MCG) TABLET PO SCH (10:26)
[2019-03-13] MEDS: APIXABAN 5 MG TABLET PO SCH ×2 (10:26→21:50)
[2019-03-13] MEDS: FOLIC ACID 1 MG TABLET (FP) PO SCH (10:26)
[2019-03-13] MEDS: amLODIPine BESYLATE 5 MG TABLET (FP) PO SCH (10:26)
[2019-03-13] MEDS: ASPIRIN COATED 81 MG TABLET.EC PO SCH (10:27)
[2019-03-13] MEDS: THIAMINE HCL 100 MG TABLET (FP) PO SCH (10:28)
[2019-03-13] MEDS: BUDESONIDE/FORMETEROL FUMARATE 160/4.5 mcg INHALER IH SCH ×2 (10:30→21:54)
[2019-03-13] MEDS: ERTAPENEM SODIUM 1 GM in SODIUM CHLORIDE 50 ML IVPB SCH (11:19)
[2019-03-13] MEDS: SENNOSIDES/DOCUSATE COMBO (SENNA PLUS) TABLET (UD) PO SCH (21:50)
[2019-03-13] MEDS: ATORVASTATIN CA 20 MG TABLET (FP) PO SCH (21:50)
[2019-03-13] MEDS: MONTELUKAST NA 10 MG TABLET PO SCH (21:50)
[2019-03-13] MEDS: KETOROLAC TROMETHAMINE 30 MG/1 ML VIAL IVPUSH PRN (21:51)
[2019-03-14] MEDS: ACETAMINOPHEN 500 MG TABLET (FP) PO PRN (06:10)
[2019-03-14] MEDS: predniSONE 5 MG/5 ML ORAL SOLN- UNIT-DOSE CUP PO SCH (06:10)
--- NOTE | 2019-03-14 08:21 | PN ---
Progress Note, Physician History of Present Illness: Patient seen and examined at bedside. Endorses discomfort on urination is improving. UCx grew ESBL E. Coli, and i Started ertapenem yesterday. Endorses pain all over her body from her rhamatoid arthritis is improved after she mgot a dose of toradol last night. Patient will likely need PICC for Abx. She denies nausea vomiting fever chills chest pain or SOB. She endorses she hasnt had a bowel movement in about 2-3 days but doesn't want anything more than senna which she is getting. - Current Medication List Current Medications: Active Medications Acetaminophen (Tylenol -) 1,000 mg PO Q6H PRN PRN Reason: PAIN LEVEL 6-10 Last Admin: 03/14/19 06:10 Dose: 1,000 mg Amlodipine Besylate (Norvasc -) 5 mg PO DAILY [facility] Last Admin: 03/13/19 10:26 Dose: 5 mg Apixaban (Eliquis -) 5 mg PO BID [facility] Last Admin: 03/13/19 21:50 Dose: 5 mg Aspirin (Ecotrin -) 81 mg PO DAILY [facility] Last Admin: 03/13/19 10:27 Dose: 81 mg Atorvastatin Calcium (Lipitor -) 20 mg PO HS [facility] Last Admin: 03/13/19 21:50 Dose: 20 mg Budesonide/Formoterol Fumarate (Symbicort 160/4.5mcg -) 1 puff IH BID [facility] Last Admin: 03/13/19 21:54 Dose: 1 puff Cholecalciferol (Vitamin D3 -) 400 unit PO DAILY [facility] Last Admin: 03/13/19 10:26 Dose: 400 unit Folic Acid (Folic Acid -) 1 mg PO DAILY [facility] Last Admin: 03/13/19 10:26 Dose: 1 mg Ertapenem 1 gm/ Sodium (Chloride) 50 mls @ 100 mls/hr IVPB DAILY [facility] Last Admin: 03/13/19 11:19 Dose: 100 mls/hr Ketorolac Tromethamine (Toradol Injection -) 15 mg IVPUSH Q6H PRN PRN Reason: PAIN LEVEL 6-10 Last Admin: 03/13/19 21:51 Dose: 15 mg Methotrexate (Mexate -) 15 mg PO Sa [facility] Last Admin: 03/13/19 10:28 Dose: 15 mg Metoprolol Tartrate (Lopressor -) 25 mg PO BID [facility] Last Admin: 03/13/19 21:51 Dose: 25 mg Montelukast Sodium (Singulair -) 10 mg PO HS [facility] Last Admin: 03/13/19 21:50 Dose: 10 mg Prednisone (Deltasone -) 7.5 mg PO AM [facility] Last Admin: 03/14/19 06:10 Dose: 7.5 mg Pregabalin (Lyrica -) 150 mg PO BID [facility] Last Admin: 03/13/19 21:51 Dose: 150 mg Senna/Docusate Sodium (Pericolace -) 1 tablet PO HS [facility] Last Admin: 03/13/19 21:50 Dose: 1 tablet Thiamine HCl (Vitamin B1 -) 100 mg PO DAILY [facility] Last Admin: 03/13/19 10:28 Dose: 100 mg - Objective Vital Signs: Vital Signs Temperature 98.8 F 03/14/19 08:05 Pulse Rate 68 03/14/19 08:05 Respiratory Rate 18 03/14/19 08:05 Blood Pressure 117/63 03/14/19 08:05 O2 Sat by Pulse Oximetry (%) 99 03/13/19 21:31 Constitutional: Yes: No Distress, Obese Eyes: Yes: WNL, Conjunctiva Clear, EOM Intact HENT: Yes: Other (moist mucous membranes). no pharyngeal erythema Cardiovascular: Yes: Regular Rate and Rhythm Respiratory: Yes: Rales (mild crackles at bilateral bases). No: Accessory Muscle Use Gastrointestinal: Yes: Soft. 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 Coli ceftriaxone stopped on 03/13/2019 and started ertapenem 1gm daily today is day 2 of ertapenem contact precautions patient will likely need PICC for ESBL UTI as today is only day 2 of ertapenem history of DVTx2 continue eliquis 5mg BID HTN Well controlled at this time cont norvasc, metoprolol HLD Continue lipitor continue aspirin DVT PPx eliquis constipation continue senna-patient doesnt want anything more Visit type - Emergency Visit Emergency Visit: Yes ED Registration Date: 03/11/19 Care time: The patient presented to the Emergency Department on the above date and was hospitalized for further evaluation of their emergent condition. - New Patient This patient is new to me today: No - Critical Care Critical Care patient: No
[2019-03-14] MEDS ORDERED: PT OWN MED DRAWER 7, Y5N ONE (09:01)
[2019-03-14] MEDS: ERTAPENEM SODIUM 1 GM in SODIUM CHLORIDE 50 ML IVPB SCH (09:46)
[2019-03-14] MEDS: amLODIPine BESYLATE 5 MG TABLET (FP) PO SCH (09:47)
[2019-03-14] MEDS: THIAMINE HCL 100 MG TABLET (FP) PO SCH (09:47)
[2019-03-14] MEDS: METOPROLOL TARTRATE 25 MG TABLET (FP) PO SCH ×2 (09:47→22:18)
[2019-03-14] MEDS: FOLIC ACID 1 MG TABLET (FP) PO SCH (09:47)
[2019-03-14] MEDS: CHOLECALCIFEROL (VIT D3) 400 UNIT (10 MCG) TABLET PO SCH (09:47)
[2019-03-14] MEDS: APIXABAN 5 MG TABLET PO SCH ×2 (09:47→22:18)
[2019-03-14] MEDS: PREGABALIN 75 MG CAPSULE PO SCH ×2 (09:47→22:18)
[2019-03-14] MEDS: ASPIRIN COATED 81 MG TABLET.EC PO SCH (09:48)
[2019-03-14] MEDS: BUDESONIDE/FORMETEROL FUMARATE 160/4.5 mcg INHALER IH SCH ×2 (09:49→22:16)
[2019-03-14] MEDS: KETOROLAC TROMETHAMINE 30 MG/1 ML VIAL IVPUSH PRN (10:02)
[2019-03-14] MEDS: ATORVASTATIN CA 20 MG TABLET (FP) PO SCH (22:18)
[2019-03-14] MEDS: SENNOSIDES/DOCUSATE COMBO (SENNA PLUS) TABLET (UD) PO SCH (22:18)
[2019-03-14] MEDS: MONTELUKAST NA 10 MG TABLET PO SCH (22:18)
[2019-03-15] MEDS ORDERED: PT OWN MED DRAWER 7, Y5N ONE ×2 (06:29→08:51)
[2019-03-15] MEDS: ACETAMINOPHEN 500 MG TABLET (FP) PO PRN (06:41)
[2019-03-15] MEDS: predniSONE 5 MG/5 ML ORAL SOLN- UNIT-DOSE CUP PO SCH (06:42)
[2019-03-15 07:13] LABS: EOS % 7.3 % (0-4.5); HEMATOCRIT 37.3 % (32.4-45.2); HEMOGLOBIN 11.8 GM/dL (10.7-15.3); LYMPH % 53.7 % (8-40); MCH 23.2 pg (25.7-33.7); MCHC 31.5 g/dl (32.0-36.0); MEAN CELL VOLUME 73.7 fl (80-96); MEAN PLT VOLUME 8.6 fl (7.5-11.1); MONO % 8.4 % (3.8-10.2); NEUT % 29.6 % (42.8-82.8); PLATELET COUNT 184 K/MM3 (134-434); RBC 5.07 M/mm3 (3.60-5.2); RDW 22.5 % (11.6-15.6); WHITE BLOOD COUNT 8.5 K/mm3 (4.0-10.0)
[2019-03-15 07:17] LABS: BLOOD UREA NITROGEN 14.3 mg/dL (7-18); CALCIUM 8.6 mg/dL (8.5-10.1); CREATININE 0.7 mg/dL (0.55-1.3); MAGNESIUM 2.3 mg/dL (1.8-2.4); POTASSIUM 4.2 mmol/L (3.5-5.1)
--- NOTE | 2019-03-15 07:45 | PN ---
Teaching Attending Note Name of Resident: Christina Perea ATTENDING PHYSICIAN STATEMENT I saw and evaluated the patient. I reviewed the resident's note and discussed the case with the resident. I agree with the resident's findings and plan as documented. SUBJECTIVE: Feels comfortable no new complaint OBJECTIVE: Vital Signs Temperature 98.1 F 03/15/19 06:00 Pulse Rate 79 03/15/19 06:00 Respiratory Rate 18 03/15/19 06:00 Blood Pressure 122/75 03/15/19 06:00 O2 Sat by Pulse Oximetry (%) 98 03/14/19 22:00 General: Middle-aged woman, comfortable, not in distress HEENT; mucous membranes moist, no anemia, no jaundice, PERRLA, no nystagmus Neck: No JVD, supple, no bruit, thyroid palpably normal, normal carotid pulsations. Chest: Nontender, clear to auscultation bilaterally CVS: S1-S2 regular no murmur/gallop/rub Abdomen: Non-distended, soft, bowel sounds present. Extremities: Contracture of rheumatoid arthritis. TRACE edema., No cough tenderness, pulses present MD OPHTHALMOLOGIST: AO X3 , no gross motor sensory deficit CBC, BMP 03/15/19 05:10 03/15/19 05:10 Active Medications Acetaminophen (Tylenol -) 1,000 mg PO Q6H PRN PRN Reason: PAIN LEVEL 6-10 Last Admin: 03/15/19 06:41 Dose: 1,000 mg Amlodipine Besylate (Norvasc -) 5 mg PO DAILY [facility] Last Admin: 03/14/19 09:47 Dose: 5 mg Apixaban (Eliquis -) 5 mg PO BID [facility] Last Admin: 03/14/19 22:18 Dose: 5 mg Aspirin (Ecotrin -) 81 mg PO DAILY [facility] Last Admin: 03/14/19 09:48 Dose: 81 mg Atorvastatin Calcium (Lipitor -) 20 mg PO HS [facility] Last Admin: 03/14/19 22:18 Dose: 20 mg Budesonide/Formoterol Fumarate (Symbicort 160/4.5mcg -) 1 puff IH BID [facility] Last Admin: 03/14/19 22:16 Dose: 1 puff Cholecalciferol (Vitamin D3 -) 400 unit PO DAILY [facility] Last Admin: 03/14/19 09:47 Dose: 400 unit Folic Acid (Folic Acid -) 1 mg PO DAILY [facility] Last Admin: 03/14/19 09:47 Dose: 1 mg Ertapenem 1 gm/ Sodium (Chloride) 50 mls @ 100 mls/hr IVPB DAILY [facility] Last Admin: 03/14/19 09:46 Dose: 100 mls/hr Ketorolac Tromethamine (Toradol Injection -) 15 mg IVPUSH Q6H PRN PRN Reason: PAIN LEVEL 6-10 Last Admin: 03/14/19 10:02 Dose: 15 mg Methotrexate (Mexate -) 15 mg PO Sa [facility] Last Admin: 03/13/19 10:28 Dose: 15 mg Metoprolol Tartrate (Lopressor -) 25 mg PO BID [facility] Last Admin: 03/14/19 22:18 Dose: 25 mg Montelukast Sodium (Singulair -) 10 mg PO [facility] Last Admin: 03/14/19 22:18 Dose: 10 mg Prednisone (Deltasone -) 7.5 mg PO AM [facility] Last Admin: 03/15/19 06:42 Dose: 7.5 mg Pregabalin (Lyrica -) 150 mg PO BID [facility] Last Admin: 03/14/19 22:18 Dose: 150 mg Senna/Docusate Sodium (Pericolace -) 1 tablet PO [facility] Last Admin: 03/14/19 22:18 Dose: 1 tablet Thiamine HCl (Vitamin B1 -) 100 mg PO DAILY [facility] Last Admin: 03/14/19 09:47 Dose: 100 mg ASSESSMENT AND PLAN: 58-year-old female history of advanced rheumatoid arthritis , hypertension, asthma, 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 Plan: Patient grew ESBL E. coli possible discharge after PICC line placement to complete IV ertapenem at [facility]. Problem List - Problems (1) Urinary tract infection Assessment/Plan: Urine culture grew ESBL E. coli on ertapenem we will explore possibility of discharging on IV antibiotic [facility]. Problems reviewed: Yes Code(s): N39.0 - URINARY TRACT INFECTION, SITE NOT SPECIFIED Qualifiers: Urinary tract infection type: site unspecified Hematuria presence: with hematuria Qualified Code(s): N39.0 - Urinary tract infection, site not specified; R31.9 - Hematuria, unspecified (2) Rheumatoid arthritis Assessment/Plan: Continue all home medications Problems reviewed: Yes Code(s): M06.9 - RHEUMATOID ARTHRITIS, UNSPECIFIED Qualifiers: Rheumatoid arthritis location: unspecified site Rheumatoid factor presence : unspecified presence Qualified Code(s): M06.9 - Rheumatoid arthritis, unspecified (3) DVT (deep venous thrombosis) Assessment/Plan: Chronic on apixaban Problems reviewed: Yes Code(s): I82.409 - ACUTE EMBOLISM AND THOMBOS UNSP DEEP VN UNSP LOWER EXTREMITY (4) Neuropathy Assessment/Plan: Pain due to neuropathy continue home medication Problems reviewed: Yes Code(s): G62.9 - POLYNEUROPATHY, UNSPECIFIED (5) Hypercholesterolemia Assessment/Plan: Continue statin Problems reviewed: Yes Code(s): E78.00 - PURE HYPERCHOLESTEROLEMIA, UNSPECIFIED (6) COPD (chronic obstructive pulmonary disease) Assessment/Plan: At present asymptomatic continue current management Problems reviewed: Yes Code(s): J44.9 - CHRONIC OBSTRUCTIVE PULMONARY DISEASE, UNSPECIFIED
[2019-03-15] MEDS: APIXABAN 5 MG TABLET PO SCH ×2 (09:25→21:29)
[2019-03-15] MEDS: METOPROLOL TARTRATE 25 MG TABLET (FP) PO SCH ×2 (09:25→21:29)
[2019-03-15] MEDS: amLODIPine BESYLATE 5 MG TABLET (FP) PO SCH (09:25)
[2019-03-15] MEDS: ASPIRIN COATED 81 MG TABLET.EC PO SCH (09:25)
[2019-03-15] MEDS: PREGABALIN 75 MG CAPSULE PO SCH ×2 (09:25→21:29)
[2019-03-15] MEDS: FOLIC ACID 1 MG TABLET (FP) PO SCH (09:25)
[2019-03-15] MEDS: CHOLECALCIFEROL (VIT D3) 400 UNIT (10 MCG) TABLET PO SCH (09:25)
[2019-03-15] MEDS: THIAMINE HCL 100 MG TABLET (FP) PO SCH (09:25)
[2019-03-15] MEDS: ERTAPENEM SODIUM 1 GM in SODIUM CHLORIDE 50 ML IVPB SCH (09:26)
[2019-03-15] MEDS: BUDESONIDE/FORMETEROL FUMARATE 160/4.5 mcg INHALER IH SCH ×2 (09:26→21:34)
[2019-03-15] MEDS: KETOROLAC TROMETHAMINE 30 MG/1 ML VIAL IVPUSH PRN (09:34)
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
[2019-03-15 12:02] LABS: ANISOCYTOSIS 1+; MACROCYTOSIS 0; OVALOCYTE 1+; PLATELET ESTIMATE NORMAL; TARGET CELLS 1+; TEAR DROP CELLS 1+
[2019-03-15] MEDS: MONTELUKAST NA 10 MG TABLET PO SCH (21:29)
[2019-03-15] MEDS: ATORVASTATIN CA 20 MG TABLET (FP) PO SCH (21:29)
[2019-03-15] MEDS: SENNOSIDES/DOCUSATE COMBO (SENNA PLUS) TABLET (UD) PO SCH (21:29)
[2019-03-16] MEDS: predniSONE 5 MG/5 ML ORAL SOLN- UNIT-DOSE CUP PO SCH (06:12)
[2019-03-16] MEDS: KETOROLAC TROMETHAMINE 30 MG/1 ML VIAL IVPUSH PRN (06:12)
--- NOTE | 2019-03-16 07:40 | PN ---
Teaching Attending Note Name of Resident: Christina Perea ATTENDING PHYSICIAN STATEMENT I saw and evaluated the patient. I reviewed the resident's note and discussed the case with the resident. I agree with the resident's findings and plan as documented. SUBJECTIVE: No new complaints OBJECTIVE: Vital Signs Temperature 98.8 F 03/16/19 06:00 Pulse Rate 80 03/16/19 06:00 Respiratory Rate 18 03/16/19 06:00 Blood Pressure 125/73 03/16/19 06:00 O2 Sat by Pulse Oximetry (%) 97 03/15/19 22:00 General: Middle-aged woman, comfortable, not in distress HEENT; mucous membranes moist, no anemia, no jaundice, PERRLA, no nystagmus Neck: No JVD, supple, no bruit, thyroid palpably normal, normal carotid pulsations. Chest: Nontender, clear to auscultation bilaterally CVS: S1-S2 regular no murmur/gallop/rub Abdomen: Non-distended, soft, bowel sounds present. Extremities: Contracture of rheumatoid arthritis. TRACE edema., No cough tenderness, pulses present INSPECTOR PRECISION: AO X3 , no gross motor sensory deficit Active Medications Acetaminophen (Tylenol -) 1,000 mg PO Q6H PRN PRN Reason: PAIN LEVEL 6-10 Last Admin: 03/15/19 06:41 Dose: 1,000 mg Amlodipine Besylate (Norvasc -) 5 mg PO DAILY [facility] Last Admin: 03/15/19 09:25 Dose: 5 mg Apixaban (Eliquis -) 5 mg PO BID [facility] Last Admin: 03/15/19 21:29 Dose: 5 mg Aspirin (Ecotrin -) 81 mg PO DAILY [facility] Last Admin: 03/15/19 09:25 Dose: 81 mg Atorvastatin Calcium (Lipitor -) 20 mg PO HS [facility] Last Admin: 03/15/19 21:29 Dose: 20 mg Budesonide/Formoterol Fumarate (Symbicort 160/4.5mcg -) 1 puff IH BID [facility] Last Admin: 03/15/19 21:34 Dose: 1 puff Cholecalciferol (Vitamin D3 -) 400 unit PO DAILY [facility] Last Admin: 03/15/19 09:25 Dose: 400 unit Folic Acid (Folic Acid -) 1 mg PO DAILY [facility] Last Admin: 03/15/19 09:25 Dose: 1 mg Ertapenem 1 gm/ Sodium (Chloride) 50 mls @ 100 mls/hr IVPB DAILY [facility] Last Admin: 03/15/19 09:26 Dose: 100 mls/hr Methotrexate (Mexate -) 15 mg PO Sa [facility] Last Admin: 03/13/19 10:28 Dose: 15 mg Metoprolol Tartrate (Lopressor -) 25 mg PO BID [facility] Last Admin: 03/15/19 21:29 Dose: 25 mg Montelukast Sodium (Singulair -) 10 mg PO HS [facility] Last Admin: 03/15/19 21:29 Dose: 10 mg Prednisone (Deltasone -) 7.5 mg PO AM [facility] Last Admin: 03/16/19 06:12 Dose: 7.5 mg Pregabalin (Lyrica -) 150 mg PO BID [facility] Last Admin: 03/15/19 21:29 Dose: 150 mg Senna/Docusate Sodium (Pericolace -) 1 tablet PO [facility] Last Admin: 03/15/19 21:29 Dose: Not Given Thiamine HCl (Vitamin B1 -) 100 mg PO DAILY [facility] Last Admin: 03/15/19 09:25 Dose: 100 mg Urine culture: ESBL E. coli ASSESSMENT AND PLAN: 58 years old female, multiple medical comorbidities including hypertension, rheumatoid arthritis, COPD/asthma, hypercholesterolemia , recurrent DVT on apixaban presents with generalized body pain work-up shows ESBL E. coli. Plan: Patient can be discharged on IV ertapenem for total 10 days of antibiotics with PICC line Problem List - Problems (1) Urinary tract infection Assessment/Plan: Urine culture grew ESBL E. coli on ertapenem we will explore possibility of discharging on IV antibiotic senior living. Code(s): N39.0 - URINARY TRACT INFECTION, SITE NOT SPECIFIED Qualifiers: Urinary tract infection type: site unspecified Hematuria presence: with hematuria Qualified Code(s): N39.0 - Urinary tract infection, site not specified; R31.9 - Hematuria, unspecified (2) Rheumatoid arthritis Assessment/Plan: Continue all home medications, need to follow-up with surgical brace maker as outpatient Code(s): M06.9 - RHEUMATOID ARTHRITIS, UNSPECIFIED Qualifiers: Rheumatoid arthritis location: unspecified site Rheumatoid factor presence : unspecified presence Qualified Code(s): M06.9 - Rheumatoid arthritis, unspecified (3) DVT (deep venous thrombosis) Assessment/Plan: Chronic recurrent DVTs on apixaban 5 mg. Code(s): I82.409 - ACUTE EMBOLISM AND THOMBOS UNSP DEEP VN UNSP LOWER EXTREMITY (4) Neuropathy Assessment/Plan: Pain due to neuropathy continue home medication Code(s): G62.9 - POLYNEUROPATHY, UNSPECIFIED (5) Hypercholesterolemia Assessment/Plan: Continue statin Problems reviewed: Yes Code(s): E78.00 - PURE HYPERCHOLESTEROLEMIA, UNSPECIFIED (6) COPD (chronic obstructive pulmonary disease) Assessment/Plan: At present asymptomatic continue current management Problems reviewed: Yes Code(s): J44.9 - CHRONIC OBSTRUCTIVE PULMONARY DISEASE, UNSPECIFIED
[2019-03-16 07:47] LABS: BASO % 0.9 % (0-2.0); EOS % 8.4 % (0-4.5); HEMATOCRIT 36.6 % (32.4-45.2); HEMOGLOBIN 11.8 GM/dL (10.7-15.3); LYMPH % 59.5 % (8-40); MCH 23.5 pg (25.7-33.7); MCHC 32.2 g/dl (32.0-36.0); MEAN CELL VOLUME 72.9 fl (80-96); MEAN PLT VOLUME 8.8 fl (7.5-11.1); MONO % 6.9 % (3.8-10.2); NEUT % 24.3 % (42.8-82.8); PLATELET COUNT 199 K/MM3 (134-434); RBC 5.02 M/mm3 (3.60-5.2); RDW 21.7 % (11.6-15.6); WHITE BLOOD COUNT 5.8 K/mm3 (4.0-10.0)
[2019-03-16 08:14] LABS: ALBUMIN 2.8 g/dl (3.4-5.0); BILIRUBIN,TOTAL 0.2 mg/dL (0.2-1); BLOOD UREA NITROGEN 12.3 mg/dL (7-18); CALCIUM 8.7 mg/dL (8.5-10.1); CREATININE 0.6 mg/dL (0.55-1.3); POTASSIUM 4.2 mmol/L (3.5-5.1); TOT PROT 6.8 g/dl (6.4-8.2)
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
[2019-03-16] MEDS ORDERED: PT OWN MED DRAWER 7, Y5N ONE (09:24)
[2019-03-16] MEDS: CHOLECALCIFEROL (VIT D3) 400 UNIT (10 MCG) TABLET PO SCH (10:06)
[2019-03-16] MEDS: APIXABAN 5 MG TABLET PO SCH (10:06)
[2019-03-16] MEDS: PREGABALIN 75 MG CAPSULE PO SCH (10:06)
[2019-03-16] MEDS: FOLIC ACID 1 MG TABLET (FP) PO SCH (10:06)
[2019-03-16] MEDS: BUDESONIDE/FORMETEROL FUMARATE 160/4.5 mcg INHALER IH SCH (10:07)
[2019-03-16] MEDS: METOPROLOL TARTRATE 25 MG TABLET (FP) PO SCH (10:07)
[2019-03-16] MEDS: THIAMINE HCL 100 MG TABLET (FP) PO SCH (10:07)
[2019-03-16] MEDS: ASPIRIN COATED 81 MG TABLET.EC PO SCH (10:07)
[2019-03-16] MEDS: amLODIPine BESYLATE 5 MG TABLET (FP) PO SCH (10:07)
[2019-03-16] MEDS: ACETAMINOPHEN 500 MG TABLET (FP) PO PRN (10:10)
[2019-03-16] MEDS: ERTAPENEM SODIUM 1 GM in SODIUM CHLORIDE 50 ML IVPB SCH (10:10)
[2019-03-16 13:14] LABS: ANISOCYTOSIS 0; MACROCYTOSIS 0; PLATELET ESTIMATE NORMAL
[2019-03-16 18:33] VITALS: BP 119/61; PULSE 75; TEMP 98.2
== END 2019-03-16 18:46 | DRG 546 ==
LOC: JER 11:06 → INTOOBSV 16:08 → JERBED 16:08 → OBSVTOIN 03-11 14:10 → J6S 03-11 14:31 → J4S 03-12 18:40
PROVIDERS: ADMIT Internal Medicine; ATTEND Internal Medicine
DX: M06.9 Rheumatoid arthritis, unspecified (principal); N39.0 Urinary tract infection, site not specified; Z16.12 Extended spectrum beta lactamase (ESBL) resistance; I82.509 Chronic embolism and thrombosis of unspecified deep veins of unspecified lower extremity; E66.9 Obesity, unspecified; I10 Essential (primary) hypertension; B96.20 Unspecified Escherichia coli [E. coli] as the cause of diseases classified elsewhere; J44.9 Chronic obstructive pulmonary disease, unspecified; Z68.39 Body mass index [BMI] 39.0-39.9, adult; G62.9 Polyneuropathy, unspecified; E78.5 Hyperlipidemia, unspecified; M81.0 Age-related osteoporosis without current pathological fracture
CPT/HCPCS: 36415; 36569; 71045-TC-FY; 80048; 80053; 81003; 83036; 83735; 84443; 85025; 85027; 87086; 87186; 93005; 93010; 97161-GP; 99285-25; C1751; G0378; J8610

== ENCOUNTER 2019-04-23 12:19 | Emergency (ER) | payer OTHER, BC ==
[2019-04-23 12:42] VITALS: BP 110/65; PULSE 115; TEMP 98.4; BMI 41.9
[2019-04-23] MEDS ORDERED: LIDOCAINE VISCOUS 2% ORAL/TOP 20 ML UNIT-DOSE CUP MM ONE (13:34)
[2019-04-23] MEDS ORDERED: HYDROmorphone HCL CARPU-JECT 2 MG/1 ML DISP.SYRIN IVPB ONE (13:36)
[2019-04-23] MEDS ORDERED: FLUCONAZOLE 200 MG/NS 100 ML IVPB ONE (13:48)
--- NOTE | 2019-04-23 13:49 | PDOC ---
History of Present Illness - General History Source: Patient - History of Present Illness Initial Comments: 04/23/19 13:40 Ms. Wing is a 58 y/o F w/hx RA on chronic steroids, methotrexate, and abatacept , COPD, HLD, anemia p/w one week of severe mouth and throat pain, bleeding and purulence at the gums. She reports that her symptoms started 7 days ago when she began to notice blood in her saliva. She reports developing severe pain in her throat that made swallowing difficult, as well as the development of pus in her sputum. She reports that she has been unable to swallow anything due to severe pain in her throat. She reports chronic daily steroid use for her RA since diagnosis in 2004. She also reports blood transfusion in childhood for anemia. She denies rash in other locations, chest pain, difficulty breathing, prior similar episodes, recurrent infections, or HIV diagnoses in the past. <Vladimir Huerta - Last Filed: 04/23/19 16:37> <Ramona Cadena - Last Filed: 04/24/19 10:10> - General Chief Complaint: Wound Stated Complaint: BLEEDING MOUTH SORES Time Seen by Provider: 04/23/19 13:16 Past History - Past Medical History Anemia: Yes (thiamine disorder. folate deficienty) Asthma: Yes Cardiac Disorders: Yes (arrythmia, tachycardia, atrial fibrillation) COPD: Yes DVT: Yes (x2 opn eliquis) GI Disorders: Yes (GERD,CONSTIPATION) HTN: Yes Hypercholesterolemia: Yes (severe rheumatitis. Glaucoma) - Surgical History Orthopedic Surgery: Yes (left knee surgery) - Immunization History Immunization Up to Date: Yes - Psycho Social/Smoking Cessation Hx Smoking History: Unknown if ever smoked Have you smoked in the past 12 months: No Information on smoking cessation initiated: No Hx Alcohol Use: No Drug/Substance Use Hx: No Substance Use Type: None Hx Substance Use Treatment: No <Vladimir Huerta - Last Filed: 04/23/19 16:37> <Ramona Cadena - Last Filed: 04/24/19 10:10> - Past Medical History Allergies/Adverse Reactions: Allergies Allergy/AdvReac Type Severity Reaction Status Date / Time sulfadiazine Allergy Verified 04/23/19 12:42 Home Medications: Ambulatory Orders Acetaminophen [Tylenol] 325 mg PO PRN 03/10/19 Amlodipine Besylate 5 mg PO DAILY 03/10/19 Apixaban [Eliquis] 5 mg PO BID 03/10/19 Budesonide/Formeterol Fumarate [SYMBICORT 160/4.5mcg -] 1 inh PO BID 03/10/19 Cholecalciferol (Vitamin D3) [Vitamin D -] 400 unit PO DAILY 03/10/19 Folic Acid 1 mg PO DAILY 03/10/19 Latanoprost 0.005% Eye Drops [Xalatan 0.005% Eye Drops -] 1 drop HS 03/10/19 Metoprolol Tartrate 25 mg PO BID 03/10/19 Montelukast Na [Singulair -] 10 mg PO HS 03/10/19 Omeprazole 20 mg PO DAILY 03/10/19 Pregabalin [Lyrica -] 150 mg PO BID 03/10/19 Sennosides/Docusate Sodium [Senna Plus 8.6-50 mg Tablet] 1 each PO HS 03/10/19 Thiamine HCl [B-1] 100 mg PO DAILY 03/10/19 Aspirin Coated [Ecotrin -] 81 mg PO DAILY tablet.ec 03/16/19 Atorvastatin Ca [Lipitor] 20 mg PO HS tablet 03/16/19 Methotrexate [Mexate -] 15 mg PO Sa 30 Days tablet 03/16/19 predniSONE ORAL SOLUTION [Deltasone Oral Solution 5 MG/5 ML -] 7.5 mg PO AM #2 cup 03/16/19 Review of Systems - Review of Systems Able to Perform ROS?: Yes Comments:: 04/23/19 15:57 ROS: GENERAL/CONSTITUTIONAL: No fever or chills. No weakness. HEAD, EYES, EARS, NOSE AND THROAT: Throat pain, pain with swallowing. Lip pain. Blood, pus in sputum. No change in vision. No ear pain or discharge. No sore throat. CARDIOVASCULAR: No chest pain or shortness of breath RESPIRATORY: No cough, wheezing, or hemoptysis. GASTROINTESTINAL: No nausea, vomiting, diarrhea or constipation. GENITOURINARY: No dysuria, frequency, or change in urination. MUSCULOSKELETAL: No joint or muscle swelling or pain. No neck or back pain. SKIN: No rash NEUROLOGIC: No headache, vertigo, loss of consciousness, or change in strength/ sensation. ENDOCRINE: No increased thirst. No abnormal weight change HEMATOLOGIC/LYMPHATIC: No anemia, easy bleeding, or history of blood clots. ALLERGIC/IMMUNOLOGIC: No hives or skin allergy. <Vladimir Huerta - Last Filed: 04/23/19 16:37> *Physical Exam - Vital Signs Last Vital Signs Temp Pulse Resp BP Pulse Ox 98.4 F 115 H 18 110/65 100 04/23/19 12:30 04/23/19 12:30 04/23/19 12:30 04/23/19 12:30 04/23/19 12:30 - Physical Exam 04/23/19 15:59 PE: GENERAL: Awake, alert, and fully oriented. HEAD: Friable lesions surrounding lips. Purulent, bloody sputum. Frequently spitting into emesis bag. Tongue white, non-scrapable. Scrapable dean noted on posterior pharynx. No signs of trauma, normocephalic, atraumatic EYES: PERRLA, EOMI, sclera anicteric, conjunctiva clear ENT: Auricles normal inspection, hearing grossly normal, nares patent, oropharynx clear without exudates. Moist mucosa NECK: Normal ROM, supple, no lymphadenopathy, JVD, or masses LUNGS: No distress, speaks full sentences, clear to auscultation bilaterally HEART: Regular rate and rhythm, normal S1 and S2, no murmurs, rubs or gallops, peripheral pulses normal and equal bilaterally. ABDOMEN: Soft, nontender, normoactive bowel sounds. No guarding, no rebound. No masses EXTREMITIES : Normal inspection, Normal range of motion, no edema. No clubbing or cyanosis NEUROLOGICAL: Cranial nerves II through XII grossly intact. Normal speech, normal gait, no focal sensorimotor deficits SKIN: Warm, Dry, normal turgor, no rashes or lesions noted <Vladimir Huerta - Last Filed: 04/23/19 16:37> - Vital Signs Last Vital Signs Temp Pulse Resp BP Pulse Ox 98.4 F 115 H 18 110/65 100 04/23/19 12:30 04/23/19 12:30 04/23/19 12:30 04/23/19 12:30 04/23/19 12:30 <Ramona Cadena - Last Filed: 04/24/19 10:10> ED Treatment Course - LABORATORY CBC & Chemistry Diagram: 04/23/19 13:45 04/23/19 13:45 - RADIOLOGY Radiology Studies Ordered: Category Date Time Status CHEST X-RAY PORTABLE* [RAD] Stat Radiology 04/23/19 13:38 Ordered <RikasureshfabianaVladimir - Last Filed: 04/23/19 16:37> - LABORATORY CBC & Chemistry Diagram: 04/23/19 13:45 04/23/19 13:45 - ADDITIONAL ORDERS Additional order review: Laboratory Results 04/23/19 13:45 Sodium 140 Potassium 4.5 Chloride 108 H Carbon Dioxide 19 L Anion Gap 12 BUN 11.7 Creatinine 0.6 Est GFR (CKD-EPI)AfAm 115.63 Est GFR (CKD-EPI)NonAf 99.77 Random Glucose 68 L Calcium 7.8 L Total Bilirubin 0.4 AST 27 ALT 9 L Alkaline Phosphatase 102 Creatine Kinase 82 Troponin I < 0.02 Total Protein 8.6 H Albumin 2.7 L Serum Folate 45 H 04/23/19 13:45 RBC 5.65 H MCV 73.1 L MCHC 31.5 L RDW 19.9 H MPV 8.5 Neutrophils % 47.0 D Lymphocytes % 38.5 D Monocytes % 9.8 Eosinophils % 4.2 Basophils % 0.5 - Medications Given in the ED: ED Medications Discontinued Medications Generic Name Dose Route Start Last Admin Trade Name Freq PRN Reason Stop Dose Admin Hydromorphone HCl 2 mg 04/23/19 13:36 04/23/19 14:07 Dilaudid Injection - IVPB 04/23/19 13:37 2 mg ONCE ONE Administration Fluconazole 100 mls @ 100 mls/hr 04/23/19 13:48 04/23/19 14:08 Diflucan 200 Mg/Ns Premixed Ivpb - IVPB 04/23/19 14:47 100 mls/hr ONCE ONE Administration Piperacillin Sod/Tazobactam 100 mls @ 200 mls/hr 04/23/19 15:15 04/23/19 15: 25 Sod 4.5 gm/ Dextrose IVPB 04/23/19 15:44 200 mls/hr ONCE ONE Administration Protocol Lidocaine HCl 60 ml 04/23/19 13:34 04/23/19 14:07 Xylocaine 2% Viscous Oral - MM 04/23/19 13:35 60 ml ONCE ONE Administration <Ramona Cadena - Last Filed: 04/24/19 10:10> Medical Decision Making - Medical Decision Making 04/23/19 13:59 58F w/hx RA 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 Folate deficiency with superimposed infection also possible given chronic methotrexate use. Plan: CBC CMP Blood cultures EKG CXR Fluconazole IV Viscous lidocaine Dilaudid 2mg for pain ID Consult Dispo: Admit --- WBC - 10.6 Trop - negative CMP - wnl Folate - 44 04/23/19 15:[address] Kasper (ID). Plan for IV fluconazole, nystatin swish and swallow, zosyn coverage for possible pneumonia. Plan for admission, will likely need scoping for eval of esophagitis. Friable lip lesions may represent amber radha-like mucositis with epidermal/dermal separation. 04/23/19 16:37 Case discussed with admitting team. As we do not have ENT nor Derm in-house, concern for future airway compromise. Plan for transfer to [facility]. <Vladimir Huerta - Last Filed: 04/23/19 16:37> Discharge - Discharge Information Problems reviewed: Yes - Admission Yes <Vladimir Huerta - Last Filed: 04/23/19 16:37> - Discharge Information Problems reviewed: Yes - Transfer to Acute Care Facility Receiving [facility] Name: [facility] Accepting Physician:: MYRIAM, Dr Black. <Ramona Cadena - Last Filed: 04/24/19 10:10> - Discharge Information Clinical Impression/Diagnosis: Oral mucositis (ulcerative) due to other drugs, Candidiasis of mouth Condition: Stable Disposition: TRANSFER ACUTE CARE/OTHER HOSP
[2019-04-23] MEDS ORDERED: HYDROmorphone HCl 2 MG/ML VIAL ONE (13:58)
[2019-04-23] MEDS ORDERED: LIDOCAINE VISCOUS 2% ORAL/TOP 20 ML UNIT-DOSE CUP ONE (13:59)
[2019-04-23 14:02] LABS: BASO % 0.5 % (0-2.0); EOS % 4.2 % (0-4.5); HEMATOCRIT 41.3 % (32.4-45.2); LYMPH % 38.5 % (8-40); MCHC 31.5 g/dl (32.0-36.0); MEAN CELL VOLUME 73.1 fl (80-96); MEAN PLT VOLUME 8.5 fl (7.5-11.1); MONO % 9.8 % (3.8-10.2); PLATELET COUNT 279 K/MM3 (134-434); RBC 5.65 M/mm3 (3.60-5.2); RDW 19.9 % (11.6-15.6); WHITE BLOOD COUNT 10.6 K/mm3 (4.0-10.0)
--- NOTE | 2019-04-23 14:29 | PDOC ---
Attending Attestation - Resident Resident Name: Vladimir Huerta - ED Attending Attestation I have performed the following: I have examined & evaluated the patient, The case was reviewed & discussed with the resident, I agree w/resident's findings & plan - HPI HPI: 04/23/19 14:28 Ms. Wing is a 58 y/o F w/hx RA on chronic steroids, methotrexate, and abatacept , COPD, HLD, anemia, DVT x 2 on Eliquis p/w one week of severe mouth and throat pain, bleeding and purulence at the gums. She reports that her symptoms started 7 days ago when she began to notice blood in her saliva. She reports developing severe pain in her throat that made swallowing difficult, as well as the development of pus in her sputum. She reports that she has been unable to swallow anything due to severe pain in her throat. She reports chronic daily steroid use for her RA since diagnosis in 2004. She also reports blood transfusion in childhood for anemia. She denies rash in other locations, chest pain, difficulty breathing, prior similar episodes, recurrent infections, or HIV diagnoses in the past. Recently admitted and dcd last month for RA flare/UTI, s/p abx. Resumed prednisone daily and MTX, Orencia IV. - Physicial Exam PE: 04/23/19 14:54 Agree with the resident's HPI and PE as documented in the electronic medical record. In moderate distress secondary to pain EOMI, PERRL, nl conjunctiva, anicteric; very dry and cracked/bleeding mucus membranes/lips, with superficial desquamitization, +white thick material on tongue, nonscrapable. +hard palate in oropharynx with white thrushlike material, scrapable appearing. neck supple. airway patent, normal phonation. lungs clear, +tachy, abdomen soft nontender. no rebound, guarding. normal external genitalia. Back nontender. RANGEL x4, no focal neuro deficits. No peripheral edema. normal color for ethnicity, WWP. no rash. normal perineum. 04/23/19 15:47 04/23/19 16:59 04/23/19 16:59 - Medical Decision Making 04/23/19 14:53 Vital Signs Temp Pulse Resp BP Pulse Ox 98.4 F 115 H 18 110/65 100 04/23/19 12:30 04/23/19 12:30 04/23/19 12:30 04/23/19 12:30 04/23/19 12:30 vs reviewed, no fever +tachy likely from severe pain Will trial pain control with viscous lidocaine and Dilaudid given her severity of presentation symptoms. High likelihood of a viral esophagitis versus candidiasis versus esophagitis. Given some areas of scrappable thrush will treat with IV fluconazole 200 mg since she cannot tolerate p.o. intake at this time. tongue appears like EBV-oral hairy leukoplakia due to the inability to remove the layer oropharynx appears more like candidiasis related thrush pt does have history of immuncompromised state with steroid use chronically and DMARD/immunomodulators. oral mucositis findings also appreciated, with gingivitis and bleeding ulcerative changes no e/o TEN or SJS. considered IV acyclovir for HSV coverage given risk of superinfection, mucocutaneous HSV coverage at 5mg/kg IV x1 ID consultation with Dr Kasper - rec'd additional zosyn for superinfection. will need inpatient EGD. biopsy rec'd c/w pain control, oral care/hygiene IV hydration with dextrose labs and lytes unremarkable, will add dextrose given difficulty tolerating PO intake nonspecific mild leukocytosis of 10.6K. Admit to hospitalist service. 04/23/19 16:[address] Fleming, uncomfortable with patient being admitted here, as there are limited subspecialty services such as ENT or derm available warrants transfer to tertiary care transfer to [facility] for subspecialty care, ENT/fiberoptic, direct visualization, biopsy and rheum eval (pt follows with Rheum at [facility] Dr. Rehman) ED to ED transfer accepted by Dr Black 04/23/19 17:05 04/23/19 17:44 04/23/19 17:47 Heart Score/ECG Review #1 ECG reviewed & interpreted by me at: 14:50 General ECG Interpretation: Sinus Rhythm, Normal Intervals Compared to previous ECG there are: Changes noted 04/23/19 15:07 EKG sinus tachycardia 126 bpm, no interval abnormalities, narrow QRS, ST and T wave segments and morphology normal. Nonspecific T wave abnormalities
[2019-04-23] MEDS ORDERED: NYSTATIN 500,000 UNITS/5 ML SUSPENSION PO ONE (15:15)
[2019-04-23] MEDS ORDERED: PIPERACILLIN/TAZOB 4.5 GM 4.5 GM in DEXTROSE 5%-WATER 100 ML IVPB ONE (15:15)
[2019-04-23 15:17] LABS: ALBUMIN 2.7 g/dl (3.4-5.0); ALK PHOS 102 U/L (45-117); ANION GAP 12 MMOL/L (8-16); BILIRUBIN,TOTAL 0.4 mg/dL (0.2-1); BLOOD UREA NITROGEN 11.7 mg/dL (7-18); CALCIUM 7.8 mg/dL (8.5-10.1); CHLORIDE 108 mmol/L (98-107); CO2 19 mmol/L (21-32); CREATININE 0.6 mg/dL (0.55-1.3); GLUCOSE,RANDOM 68 mg/dL (74-106); POTASSIUM 4.5 mmol/L (3.5-5.1); SGOT/AST 27 U/L (15-37); SGPT/ALT 9 U/L (13-61); SODIUM 140 mmol/L (136-145); TOT PROT 8.6 g/dl (6.4-8.2)
[2019-04-23] MEDS ORDERED: PIPERACILLIN/TAZOB 4.5 GM 4.5 GM/100 ML BAG IVPB ONE (15:24)
--- NOTE | 2019-04-23 15:36 | CON.ID ---
Consult Consult Specialty:: infectious diseases Referred by:: dr caputo Reason for Consultation:: hemoptysis,thrush,necrosis of the lips - History of Present Illness History of Present Illness: 58 y/o F w/hx RA on chronic steroids, methotrexate, and abatacept, COPD, HLD, anemia, DVT x 2 on Eliquis p/w one week of severe mouth and throat pain, bleeding and purulence at the gums. She reports that her symptoms started 7 days ago when she began to notice blood in her saliva. She reports developing severe pain in her throat that made swallowing difficult, as well as the development of pus in her sputum. She reports that she has been unable to swallow anything due to severe pain in her throat. She reports chronic daily steroid use for her RA since diagnosis in 2004. She also reports blood transfusion in childhood for anemia. She denies rash in other locations, chest pain, difficulty breathing, prior similar episodes, recurrent infections, or HIV diagnoses in the past. Recently admitted and dcd last month for RA flare/UTI, s/p abx. Resumed prednisone daily and MTX, Orencia IV. - Alcohol/Substance Use Hx Alcohol Use: No - Smoking History Smoking history: Unknown if ever smoked Have you smoked in the past 12 months: No Home Medications - Allergies Allergies/Adverse Reactions: Allergies Allergy/AdvReac Type Severity Reaction Status Date / Time sulfadiazine Allergy Verified 04/23/19 12:42 - Home Medications Home Medications: Ambulatory Orders Acetaminophen [Tylenol] 325 mg PO PRN 03/10/19 Amlodipine Besylate 5 mg PO DAILY 03/10/19 Apixaban [Eliquis] 5 mg PO BID 03/10/19 Budesonide/Formeterol Fumarate [SYMBICORT 160/4.5mcg -] 1 inh PO BID 03/10/19 Cholecalciferol (Vitamin D3) [Vitamin D -] 400 unit PO DAILY 03/10/19 Folic Acid 1 mg PO DAILY 03/10/19 Latanoprost 0.005% Eye Drops [Xalatan 0.005% Eye Drops -] 1 drop HS 03/10/19 Metoprolol Tartrate 25 mg PO BID 03/10/19 Montelukast Na [Singulair -] 10 mg PO HS 03/10/19 Omeprazole 20 mg PO DAILY 03/10/19 Pregabalin [Lyrica -] 150 mg PO BID 03/10/19 Sennosides/Docusate Sodium [Senna Plus 8.6-50 mg Tablet] 1 each PO HS 03/10/19 Thiamine HCl [B-1] 100 mg PO DAILY 03/10/19 Aspirin Coated [Ecotrin -] 81 mg PO DAILY tablet.ec 03/16/19 Atorvastatin Ca [Lipitor] 20 mg PO HS tablet 03/16/19 Methotrexate [Mexate -] 15 mg PO Sa 30 Days tablet 03/16/19 predniSONE ORAL SOLUTION [Deltasone Oral Solution 5 MG/5 ML -] 7.5 mg PO AM #2 cup 03/16/19 Physical Exam Vital Signs: Vital Signs Temperature 98.4 F 04/23/19 12:30 Pulse Rate 115 H 04/23/19 12:30 Respiratory Rate 18 04/23/19 12:30 Blood Pressure 110/65 04/23/19 12:30 O2 Sat by Pulse Oximetry (%) 100 04/23/19 12:30 Labs: CBC, BMP 04/23/19 13:45 04/23/19 13:45
[2019-04-23] MEDS ORDERED: ACYCLOVIR INJECTION 500 MG in DEXTROSE 5%-WATER - 100 ML IVPB ONE (16:57)
[2019-04-23] MEDS ORDERED: DEXTROSE 5%-NORMAL SALINE 1,000 ML IV ONE (17:06)
[2019-04-23] MEDS ORDERED: PIPERACILLIN/TAZOB 3.375 GM 3.375 GM in DEXTROSE 5%-WATER - 50 ML IVPB SCH (18:00)
--- NOTE | 2019-04-24 13:33 | EKG ---
Test Reason : Blood Pressure : / mmHG Vent. Rate : 126 BPM Atrial Rate : 126 BPM P-R Int : 146 ms QRS Dur : 076 ms QT Int : 304 ms P-R-T Axes : 045 -36 085 degrees QTc Int : 440 ms SINUS TACHYCARDIA LEFT AXIS DEVIATION VOLTAGE CRITERIA FOR LEFT VENTRICULAR HYPERTROPHY NONSPECIFIC ST ABNORMALITY ABNORMAL ECG Confirmed by LYDIA GIBBS MD ([id number]) on 04/24/2019 1:33:35 PM Referred By: Confirmed By:LYDIA GIBBS MD
== END 2019-04-23 18:35 | disposition short-term general hospital (02) ==
LOC: JER 12:19 → JERBED 15:18 → UNDOADMIN 15:18 → JER 18:35
DX: K12.32 Oral mucositis (ulcerative) due to other drugs (principal); Z88.2 Allergy status to sulfonamides; B37.0 Candidal stomatitis
CPT/HCPCS: 36415; 71045-TC-FY; 80053; 82550; 82746; 84484; 85025; 87040; 93005; 93010; 99285-25